=== PATIENT | male | born 1980 | race Caucasian/White ===

== ENCOUNTER 2023-01-23 20:30 | Emergency (ER) | payer OTHER ==
[~2023-01-23] VITALS: Ht 198.1 cm; Wt 136.1 kg
[~2023-01-23 20:30] MED LIST: Anastrozole1 GM PO; Depo-Testos200 MG/ML IM
[2023-01-23 20:33] VITALS: BP 187/99
[2023-01-23] MEDS ORDERED: LIDOCAINE1 EACH TOP (21:58)
[2023-01-23] MEDS ORDERED: ONDA4 PO (21:58)
[2023-01-23] MEDS ORDERED: Robaxin750 MG PO (21:58)
== END 2023-01-23 22:23 | disposition home or self-care (01) ==
LOC: ER 20:30
DX: M54.42 Lumbago with sciatica, left side (principal); Z79.890 Hormone replacement therapy
CPT/HCPCS: 96372; 99282-25; A9270; J1885